=== PATIENT | female | born 1980 | race Caucasian/White ===

== ENCOUNTER 2016-08-08 15:35 | Emergency (ER) | payer BC ==
[~2016-08-08 15:35] MED LIST: COLACE-DPS100 MG PO; IMITREX DPS100 MG PO; MILK OF MAGNESI10 ML PO; MOTRIN-DPS800 MG PO; PERCOCET 5 DPS1 TAB PO; ZOFRAN4 MG PO
[2016-08-25] MEDS ORDERED: NAPROSYN DPS500 MG PO (16:43)
[2016-08-25] MEDS ORDERED: COMPAZINE10 MG PO (16:44)
[2016-08-25] MEDS ORDERED: COMPAZINE10 MG (16:44)
[2016-08-25] MEDS ORDERED: DEPAKOTE ER500 MG PO (16:44)
== END 2016-08-08 19:00 | disposition home or self-care (01) ==
DX: G43.909 Migraine, unspecified, not intractable, without status migrainosus (principal); Z90.711 Acquired absence of uterus with remaining cervical stump; Z88.0 Allergy status to penicillin; Z79.899 Other long term (current) drug therapy

== ENCOUNTER 2016-08-20 13:52 | Inpatient (IN) | payer BC ==
[~2016-08-20] VITALS: Ht 162.6 cm; Wt 76.1 kg
--- NOTE | ~2016-08-20 | CO ---
ADMIT: 08/20/2016 RM/LOC: 411 [facility] MR#: [id number] [address] [facility] [address] [place], [place] [address] RACHANA LI [address] [place] [address] Consultation SEX: F AGE: 36 : 1980 DATE OF CONSULTATION: 08/22/2016 ATTENDING PHYSICIAN: Oralia Arevalo CONSULTING PHYSICIAN: Ernie Mccarthy MD REASON FOR CONSULTATION: Complex migraine. HISTORY OF PRESENT ILLNESS: The patient is a 36-year-old woman who is known to me from her previous presentation to the ER on August 08 with right-sided weakness and migraine. The stroke alert was called at that time, but the tPA was not utilized. The MRI did not show any acute events. Her headache and weakness resolved with a single dose of Depakote, and the patient was discharged to home. The patient was admitted on August 20 with again similar episode of right-sided weakness, which was unfortunately also complicated by unresponsive episode, which was the result of the reaction to opiates. She woke up with Narcan. She was then transferred to step-down unit for continued management. Neurology was consulted for continued migraine. PAST MEDICAL HISTORY: Complex migraine and gynecological surgery before. She has a history of non-epileptogenic spells in the past and followed with neurologists in [place]. SOCIAL HISTORY: She does not smoke. ALLERGIES: SHE IS NOT ALLERGIC TO ANY MEDICATIONS. MEDICATIONS: Medications on outpatient basis reviewed in electronic medical record. REVIEW OF SYSTEMS: All systems reviewed and negative except as per HPI. PHYSICAL EXAMINATION: VITAL SIGNS: Temperature 96.8, heart rate 91, respirations 16, blood pressure 147/87, and saturation 100% on room air. The pain level as recorded at 1645 hours is 7. GENERAL: The patient appears to be in no acute discomfort. HEAD: Normocephalic. NECK: Supple. CHEST: Normal respiratory rises. CARDIOVASCULAR: Regular rate. ABDOMEN: Nondistended. EXTREMITIES: No clubbing or cyanosis. NEUROLOGICAL EXAM: The patient is awake, appropriately oriented. Speech is normal. Language is normal. Fund of knowledge seems to be intact. She is euthymic. Affect is congruent with mood. Cranial nerves; visual rodríguez are intact. Pupils equal and reactive. Extraocular muscles intact. Facial sensation, reports tingling on right side. Face is asymmetric with functional appearing weakness. She is actually in fact joce her muscles to pull ADMIT: 08/20/2016 RM/LOC: 411 [facility] MR#: [id number] [address] [facility] [address] [place] [id number] RACHANA LI [address] [place] [address] Consultation SEX: F AGE: 36 : 1980 her mouth toward the left. The appearance is similar as described in my previous note. Hearing is intact. Uvula is midline. Palatal arch is symmetric. Shoulder shrug is symmetric. Tongue is midline, fairly moveable. Motor examination reveals give-way weakness in right upper and right lower extremity, similar to previous examination. Sensory exam again reports some tingling on the right side. Coordination with left side is normal, right side functional. Reflexes are symmetric and brisk. Toes are downgoing bilaterally. Gait is deferred at this time. LABORATORY DATA: Reviewed in electronic medical record and is fairly unremarkable. MRI brain is normal. ASSESSMENT: 1. Complex migraine. 2. Functional/nonorganic weakness. PLAN: We will obtain EEG for completeness of the workup, and we will take care of the headaches with infusions of valproic acid 500 mg q.8 hours x3 as well as magnesium sulfate 1 g every 8 hours x3. We will discontinue Zofran as it often potentiates headache and replace with Compazine 10 mg q.8 hours p.r.n. We will also discontinue Imitrex at this time. Thank you very much for this interesting consultation. We will continue to follow along. Ernie Mccarthy MD/ meredith JOB #: [id number] CC: Oralia Arevalo, Attending Physician Oralia Arevalo, Family Physician
--- NOTE | 2016-08-21 15:08 | ER ---
ADMIT: 08/20/2016 RM/LOC: ER [facility] MR#: [id number] [address] [facility] [address] [place], [place] [address] RACHANA LI [address] [place] [address] Emergency Room Report SEX: F AGE: 36 : 1980 DATE: 08/20/2016 ADDENDUM: A 36-year-old white female coming in with stroke-like symptoms. She had these before. The neurologist saw her on August 08, 2016, thought that this might be more functional in nature. We did rescan her. I cannot entirely rule out a complex migraine with residual symptoms. We have given her Dilaudid for pain, Zofran, Toradol, a little fluid. We gave her 500 valproic acid as well. At this time, her symptoms are little better, but she still cannot speak. According to her, she can write, but her right side is still weak as before. We have kept her down in the emergency room to see if this has resolved since it did the last time. It is not resolved so far. I spoke with Dr. Buenrostro. He will admit as an observation for in order to see if she resolves all this. Again, she had it before. She did not receive tPA. She had actually gotten CT scan and MRI on August 08, 2016 and as of today, there are no changes on the CT. CONDITION ON DISCHARGE: Fair. Judd Johns MD/ meredith JOB #: [id number] CC: Judd Johns MD, Attending Physician Deniz Buenrostro DO, Family Physician
--- NOTE | 2016-08-25 15:59 | EEG ---
ADMIT: 08/20/2016 RM/LOC: 411 [facility] MR#: [id number] [address] [facility] [address] [place], [place] [address] RACHANA LI [address] [place] [address] Inpatient EEG SEX: F AGE: 36 : 1980 DATE: 08/22/2016 EEG NUMBER: [id number]. HISTORY OF PRESENT ILLNESS: The patient is a 36-year-old woman with complex migraine and history of non-epileptogenic spells. This is a routine 21 channel digital EEG recording performed on a cooperative patient, who was awake and drowsy in various portions of the study. The study is performed using the 10/20 international electrode placement system. During wakefulness, the background activity is fairly well organized, consisting of regular and symmetrical medium amplitude 9.5 to 10 hertz activity seen posteriorly, which attenuates with eye opening. In addition, moderate amount of low-amplitude fast activity is seen anteriorly. During periods of drowsiness, there is generalized attenuation of the posterior dominant rhythm with appearance of medium amplitude 6 to 7 Hz activity seen bilaterally. There were no focal slowing nor epileptiform discharges seen in this recording. Hyperventilation performed for 3 minutes with good effort, failed to produce generalized slowing of the posterior dominant rhythm. Photic stimulation performed at 1-33 hertz frequency elicited bilateral occipital driving response. IMPRESSION: This is a normal awake and drowsy EEG recording. Note, a normal EEG does not rule out the existence of seizure disorder. Clinical correlation is suggested. COMMENT: Normal cardiac rhythm is noted throughout this recording. Ernie Mccarthy MD/ meredith JOB #: [id number] CC: Oralia Arevalo MD, Attending Physician Oralia Arevalo MD, Family Physician
[2016-08-25] MEDS ORDERED: NAPROSYN DPS500 MG PO (16:43)
[2016-08-25] MEDS ORDERED: DEPAKOTE ER500 MG PO (16:44)
[2016-08-25] MEDS ORDERED: COMPAZINE10 MG (16:44)
[2016-08-25] MEDS ORDERED: COMPAZINE10 MG PO (16:44)
--- NOTE | 2016-09-12 08:35 | HP ---
ADMIT: 08/20/2016 RM/LOC: 305 [facility] MR#: [id number] [address] [facility] [address] [place], [place] [address] RACHANA LI [address] [place] [address] History and Physical SEX: F AGE: 36 : 1980 DATE OF SERVICE: 08/20/2016 REASON FOR HOSPITALIZATION: Unresponsive episode and migraine. HISTORY OF PRESENT ILLNESS: This is a 36-year-old female patient, presented to the emergency room with symptoms and signs reminiscent of previous visit, which included a stroke evaluation and Neurology consultation with Dr. Mccarthy. At that time, she was not found to have any organic issues outside of a presumed complex migraine without seizure and possible functional overlay, which cause right-sided hemiparesis, aphasia, and symptoms similar to her presentation tonight. This afternoon, she came to the emergency room. She was observed for an extensive period of time with the thought that in fact it was migraine, the symptoms would resolve. However, they did not resolve. We subsequently made arrangements for her OPO admission for further observation. I was called earlier in the evening for pain and nausea management. We gave her a dose of morphine, prescribed Lortab and Zofran and then my subsequent phone call from the floor was that she was unresponsive and that they were calling a code although she never lost heart rate, respirations, or oxygen saturation. We gave her Narcan. She is a transfer to the intensive care unit where she is now responsive and able to speak and answer questions and complains of headache. On exam, she is moving all extremities. She is wiggling her fingers to command. She is responding appropriately to questions. PAST MEDICAL HISTORY: Does include prior gynecologic surgery and prior complex migraine and Neurologic consultation and evaluation. SOCIAL HISTORY: She does work. I do not have a great deal of access to social and family history at the time of this dictation, but this will be reviewed. PHYSICAL EXAMINATION: GENERAL: On examination again, she is alert, but having some painful distress from headache. She is responsive. Speaking and ADMIT: 08/20/2016 RM/LOC: 305 [facility] MR#: [id number] [address] [address] RACHANA LI [address] [place] [address] History and Physical SEX: F AGE: 36 : 1980 answering questions. She is following commands. HEART: Regular. LUNGS: Clear. LABORATORY DATA: Her labs are reviewed as was CT from the emergency room, which showed no acute changes. IMPRESSION: Possible complex migraine with neurologic symptoms of right hemiparesis and aphasia and probably compounded by a dose of morphine, which caused her to be unresponsive and she has now responded to a dose of Narcan. We are going to keep her in the ICU, have her go through with an MRI of the brain, and a followup further metabolic assessment. Deniz Buenrostro DO/ meredith JOB #: [id number] CC: Oralia Arevalo, Attending Physician Oralia Arevalo, Family Physician
--- NOTE | 2016-09-14 07:28 | DS ---
ADMIT: 08/20/2016 RM/LOC: 411 [facility] MR#: [id number] [address] [facility] [address] [place], [place] [address] RACHANA LI [address] [place] [address] General Discharge Summary SEX: F AGE: 36 : 1980 ADMISSION DATE: 08/20/2016 DISCHARGE DATE: 08/24/2016 DISCHARGE DIAGNOSIS: Complex migraine. HISTORY OF PRESENT ILLNESS: Well documented in her H and P. LABORATORY AND RADIOGRAPHIC ASSESSMENT: As followed; on admission, her white count was 9.2, hemoglobin of 15.0, and platelet count of 313,000. INR of less than 1. Her sodium is 142, potassium 3.8, BUN and creatinine 8 and 0.8, calcium of 8.4, and magnesium 2.3. Blood sugars of 89 and 103. test was negative. Her drug screen was negative. CT of brain showed no acute intracranial mass effect or abnormalities. EEG showed no focal slowing or epileptiform discharge seen are recorded. Normal awake and drowsy EEG. HOSPITAL COURSE: She was admitted to [facility] on 08/20/2016 with symptoms consistent with complex migraine with functional weakness, with significant headache. She had an episode of nonresponsiveness, which was felt to be secondary to narcotics. She was seen and evaluated by Dr. Mccarthy, who managed her medical management of this migraine. She was given IV fluids, underwent EEG, given valproic acid. Compazine and Zofran were discontinued. Also, given magnesium. Narcotics were discontinued. She was given Toradol for persistent headache. She subsequently had slow, but sure improvement in her migraine and was subsequently discharged to home on Depakote ER 500 mg at bedtime. Continue naproxen 500 mg one tablet p.o. b.i.d., Compazine 10 mg every 6 hours p.r.n., as well as the Depakote. She was discharged in stable condition. She will have followup with Neurology here as well as Neurology in her primary neurologist in [place]. Oralia Arevalo MD/ meredith JOB #: [id number] CC: Oralia Arevalo MD, Attending Physician Oralia Arevalo MD, Family Physician
== END 2016-08-24 15:32 | disposition home or self-care (01) | DRG 103 ==
LOC: ER 13:52 → 3ICU 17:12 → 4PCU 17:12 → 3ICU 23:49 → 4PCU 08-22 00:16
PROVIDERS: ADMIT Internal Medicine
DX: G43.109 Migraine with aura, not intractable, without status migrainosus (principal); R47.01 Aphasia; R40.0 Somnolence; T40.2X5A Adverse effect of other opioids, initial encounter